=== PATIENT | male | born 1960 | race Caucasian/White ===

== ENCOUNTER 2018-11-15 06:38 | Day surgery (SDC) | payer BC ==
[2018-11-11 16:18] VITALS: BMI 39.1
[~2018-11-15 06:38] MED LIST: LACTATED RINGERS 1,000 ML IV SCH; LIDOCAINE 1% 20 ML VIAL (10MG/ML) FOR IV START INTRADERMA PRN; MIDAZOLAM (PF) 2 MG/2 ML VIAL IV PRN
[2018-11-15 07:21] VITALS: TEMP 97.5
[2018-11-15 07:29] LABS: Glucose,Whole Blood 123 mg/dL (75-99)
[2018-11-15] MEDS ORDERED: KETAMINE 10 MG/ML 20 ML VIAL ONE (07:53)
[2018-11-15] MEDS ORDERED: PROPOFOL 10 MG/ML 20 ML VIAL IV ONE (07:53)
[2018-11-15 08:19] VITALS: RESP 16
--- NOTE | 2018-11-15 08:26 | P.PCN ---
Date of Procedure: 11/15/18 Procedure(s) Performed: Procedure: Total colonoscopy. Preoperative diagnosis: Screening for neoplasia. Postoperative diagnosis: Mild diverticulosis with no evidence of acute diverticulitis, strictures, polyps or cancer. Preparation: HalfLytely prep. Sedation: Was provided by anesthesia. Brief clinical history: The patient is a 58-year-old male who is scheduled for this evaluation for screening for neoplasia age being his risk factor. He had a prior exam in 2011. The patient has no abdominal complaints, bleeding or anemia. No family history of colon cancer. Procedure: With the patient on his left lateral decubitus position and after informed consent and adequate sedation, the perianal area was inspected and it did not show any fissures or fistulas. There were no masses felt on digital rectal examination. The Olympus CFH 190L video colonoscope was then inserted in the rectum in the usual fashion and advanced to the cecum. The mucosa appeared healthy. No polyps or tumors were seen. There was occasional diverticular orifices noted on the right side with a rare orifice in the sigmoid with no evidence of acute diverticulitis or strictures. I retroflexed the endoscope in the rectum before the endoscope was withdrawn. The patient tolerated the procedure well. Plan: The patient was reassured. Discussed dietary measures. He will follow up with you as planned and I recommended repeat exam in 10 years.
[2018-11-15 08:37] VITALS: BP 138/81; PULSE 57
== END 2018-11-15 09:12 | disposition home or self-care (01) ==
LOC: ORWHC2ENDO 06:38
DX: Z12.11 Encounter for screening for malignant neoplasm of colon (principal); K57.30 Diverticulosis of large intestine without perforation or abscess without bleeding; E11.9 Type 2 diabetes mellitus without complications; K21.9 Gastro-esophageal reflux disease without esophagitis; I10 Essential (primary) hypertension; N40.0 Benign prostatic hyperplasia without lower urinary tract symptoms; G47.33 Obstructive sleep apnea (adult) (pediatric); Z88.8 Allergy status to other drugs, medicaments and biological substances; Z99.89 Dependence on other enabling machines and devices; Z79.82 Long term (current) use of aspirin; Z79.84 Long term (current) use of oral hypoglycemic drugs; Z79.899 Other long term (current) drug therapy; Z79.1 Long term (current) use of non-steroidal anti-inflammatories (NSAID)
CPT/HCPCS: J2704; G0121; 45378

== ENCOUNTER → 2019-05-05 | Outpatient (CLI) | payer BC ==
--- NOTE | 2019-05-05 12:26 | ECHOS ---
STRESS ECHOCARDIOGRAM INDICATIONS: Chest pain. BASELINE HEART RATE: 62 BASELINE BLOOD PRESSURE: 139/72 MAXIMUM HEART RATE: 145 MAXIMUM BLOOD PRESSURE: 168/27 85% MPHR: 138 100% MPHR: 162 METS: 7.1 MAXIMUM STAGE REACHED: 2 TOTAL EXERCISE TIME: 5:11 CLINICAL INFORMATION: Patient was exercised for a total period of 5 minutes. The peak heart rate of 145 was achieved. Maximum blood pressure 168/27 mmHg was noted. Test was terminated because patient got tired. Patient did not complain of any chest pain during the test. Resting EKG shows normal sinus rhythm with normal MO interval and QRS duration and normal ST-T waves. Occasional PVCs were noted, during exercise about [address]- segment depression is noted without associated with any symptoms of angina. In the immediate postexercise period, upsloping ST segments are noted. The baseline echocardiographic images reveals normal left ventricular chamber size with normal left ventricular systolic function in the immediate postexercise period. Normal increase in the wall thickness and contractility is noted. FINAL IMPRESSION: 1. This stress echocardiographic study is negative for stress-induced ischemia. 2. EKG portion of the stress test shows ST-segment depression suggestive of ischemia or changes secondary to hypertension without associated with symptoms of angina. 3. Clinical correlation is suggested. 4. Patient's exercise tolerance is average. MMODL / IJN: [id number] /
== END | disposition home or self-care (01) ==
LOC: RADNMMAIN 10:08
PROVIDERS: ATTEND Family Medicine
DX: R07.9 Chest pain, unspecified (principal)
CPT/HCPCS: 93351; Q9950

== ENCOUNTER → 2019-06-01 | Outpatient (CLI) | payer BC ==
[2019-06-01 11:50] LABS: HCT 41.5 % (39.0-53.0); HGB 13.8 gm/dL (13.0-17.5); MCHC 33.3 g/dL (31.0-37.0); MCV 78.1 fL (80.0-100.0); Platelet Count 194 k/uL (150-450); RBC 5.31 m/uL (4.30-5.90); RDW 15.2 % (11.5-15.5); WBC 7.8 k/uL (3.8-10.6)
[2019-06-01 11:59] LABS: Potassium 4.4 mmol/L (3.5-5.1)
== END | disposition home or self-care (01) ==
LOC: LABPAT 11:06
PROVIDERS: ATTEND Internal Medicine Interventional Cardiology
DX: Z01.812 Encounter for preprocedural laboratory examination (principal); R94.39 Abnormal result of other cardiovascular function study
CPT/HCPCS: 36415; 80051; 82565; 84520; 85027

== ENCOUNTER → 2019-06-06 | Day surgery (SDC) | payer BC ==
[2019-06-02 12:00] VITALS: BMI 39.9
[~2019-06-06] MED LIST changes: +ALPRAZolam 0.25 MG TAB PO PRN; +ALPRAZolam 0.5 MG TAB PO PRN; +ASPIRIN 325 MG TAB PO ONE; +ATORVASTATIN 80 MG TAB PO ONE; +HEPARIN SODIUM 1,000 UN/ML (10ML VL) IV ONE; +HEPARIN SODIUM 1,000 UN/ML (10ML VL) ONE; +IOPAMIDOL-370 125ML BTL INJ ONE; -LACTATED RINGERS 1,000 ML IV SCH; -LIDOCAINE 1% 20 ML VIAL (10MG/ML) FOR IV START INTRADERMA PRN; +LIDOCAINE 1% INJ 10MG/ML (20 ML MDV) ONE; +LIDOCAINE 2% (PF) 20 MG/ML 10 ML AMP SQ ONE; -MIDAZOLAM (PF) 2 MG/2 ML VIAL IV PRN; +NIACIN 500 MG PO SCH; +NITROGLYCERIN SL TABS 0.4 MG TAB SUBLINGUAL PRN; +NON FORMULARY DRUG (Aspirin [Adult Low Dose Aspirin Ec] 81 MG) PO SCH; +NON FORMULARY DRUG (Losartan Potassium [Cozaar] 100 MG) PO SCH; +NON FORMULARY DRUG (Ubidecarenone [Co Q-10] 400 MG) PO SCH; +PRAVASTATIN SODIUM 40 MG TAB PO SCH; +RANITIDINE HCL 300 MG PO SCH; +RX INFO: IV CONTRAST WAS GIVEN 1 EACH MISC MISCELLANE PRN; +SAW PALMETTO PO SCH; +SODIUM CHLORIDE 0.9% 1,000 ML IV ONE; +SODIUM CHLORIDE 0.9% 1,000 ML IV SCH; +SODIUM CHLORIDE 0.9% 1,000 ML in EMPTY BAG 1 BAG IV ONE; +TAMSULOSIN 0.4 MG CAP.ER.24H PO SCH; +VERAPAMIL 2.5 MG/ML 2 ML AMP ONE; +VERAPAMIL SYRINGE (5 MG/10 ML) INTRAARTER ONE; +fentaNYL (PF) 50 MCG/ML 2 ML AMP IV ONE; +fentaNYL (PF) 50 MCG/ML 2 ML AMP ONE; +glipiZIDE 10 MG TAB PO SCH
[2019-06-06 07:20] LABS: Glucose,Whole Blood 152 mg/dL (75-99)
[2019-06-06 07:22] VITALS: RESP 16; TEMP 97.9
--- NOTE | 2019-06-06 11:15 | CC ---
CARDIAC CATHETERIZATION REPORT Mr. Sharpe is a 58-year-old male with known history of hypertension, hyperlipidemia, and a history of diabetes mellitus, who presented with worsening exertional chest discomfort and dyspnea on exertion. In view of that, recommendation made regarding cardiac catheterization. The procedure as well as risks and complications were discussed with the patient who is in full understanding and agreement. DESCRIPTION OF PROCEDURE: Patient was brought to the chemistry laboratory technician in a fasting semi-sedated state after receiving fentanyl and Benadryl and achieving moderate conscious sedated state. Using Xylocaine anesthesia and Seldinger technique, a 6-Mongolian sheath was introduced in the right radial artery. Selective right and left coronary angiography was performed using 5- Mongolian 3 and half bend right and left Maxine catheter. Multiple views of the coronary artery including hemiaxial views were obtained. Following that, a 5-Mongolian tight pigtail catheter was introduced into the left ventricle and pressures were calculated. Following that, catheter and sheaths were removed. Hemostasis was obtained with deployment of a TR band. There was no immediate complications. Patient was returned to his room in stable condition. Of note, the patient received 5000 units of intravenous heparin as well as intra-arterial verapamil. RESULTS: LEFT MAIN: This is a large-sized vessel bifurcating into left circumflex, left anterior descending artery. Left main coronary artery has no evidence of high-grade stenosis. LEFT ANTERIOR DESCENDING ARTERY: This is a large-sized vessel reaching towards the apex with a wraparound apex segment giving rise to a large diagonal branch proximally. The left anterior descending artery in mid segment has 10% to 20% plaque without any evidence of high-grade stenosis. LEFT CIRCUMFLEX: This is a nondominant vessel, large in caliber giving rise to two moderately-sized obtuse marginal branches. The second obtuse marginal branch has a 20% to 30% plaque. The rest of the vessel has no high-grade stenosis. RIGHT CORONARY ARTERY: This is a moderately-sized dominant vessel giving rise to a PDA distally. The right coronary artery in the mid and distal segment has mild intimal disease of 10% to 20% without any evidence of high-grade stenosis. LEFT VENTRICULOGRAM: Was not performed. HEMODYNAMICS: There was no gradient across the aortic valve. The left ventricular end-diastolic pressure was 12 mmHg. CONCLUSION: 1. Mild triple-vessel coronary artery disease. 2. Normal left ventricular end-diastolic pressure. RECOMMENDATION: In view of findings and anatomy, I recommend continued medical therapy with aggressive coronary risk modifications that have been initiated. Those findings and recommendations were discussed with the patient and his family who are in full understanding and agreement. DURATION OF PROCEDURE: 16 minutes. RON / BELLN: [id number] /
--- NOTE | 2019-06-06 11:15 | LTR ---
DATE OF SERVICE: 06/06/[address] Cornell: I had the pleasure of performing cardiac catheterization on Mr. Sharpe at [facility] on June 06 and a full copy of procedure note will be forwarded to you. In brief, he was found to have mild triple-vessel coronary artery disease without any evidence of critical stenosis. Based on those findings, I recommended continued medical therapy with aggressive coronary risk modifications that have been initiated. Thank you again for allowing me to participate in his care. Please feel free to call for any questions. Sincerely, RON / BELLN: [id number] /
[2019-06-06 12:34] VITALS: BP 147/78; PULSE 54
== END | disposition home or self-care (01) ==
LOC: CATHCVL 06:34
PROVIDERS: ATTEND Internal Medicine Interventional Cardiology
DX: I25.10 Atherosclerotic heart disease of native coronary artery without angina pectoris (principal); I10 Essential (primary) hypertension; E78.5 Hyperlipidemia, unspecified; Z82.49 Family history of ischemic heart disease and other diseases of the circulatory system; E11.9 Type 2 diabetes mellitus without complications; Z79.899 Other long term (current) drug therapy; Z79.82 Long term (current) use of aspirin
CPT/HCPCS: 93458; J2001; J3010; J1644; Q9967

== ENCOUNTER → 2021-08-08 | Outpatient (CLI) | payer BC ==
--- NOTE | 2021-08-08 11:30 | FL ---
EXAMINATION TYPE: FL barium swallow DATE OF EXAM: 08/08/2021 CLINICAL INDICATION: 60-year-old male R74.02, dysphasia. Patient with a "tickle" along the right side of the throat for the last 6-12 months. COMPARISON: None Total Fluoroscopy Time: 2 minutes 48 images obtained. FINDINGS: The swallowing mechanism is normal and hypopharyngeal anatomy is preserved. The cervical and thoracic portions have a normal course and caliber and normal motility. The mucosa is normal and no persistent filling defect is encountered. There is a tiny sliding hiatal hernia demonstrated and a single spontaneous episode of mild gastroeso phageal reflux IMPRESSION: Tiny sliding hiatal hernia and a single spontaneous episode of mild gastroesophageal reflux. Otherwis e, unremarkable esophagram.
== END | disposition home or self-care (01) ==
LOC: RADUSWWP 10:07
PROVIDERS: ATTEND Family Medicine
DX: K44.9 Diaphragmatic hernia without obstruction or gangrene (principal); K21.9 Gastro-esophageal reflux disease without esophagitis
CPT/HCPCS: 74220